=== PATIENT | female | born 2000 | race Caucasian/White ===

== ENCOUNTER 2019-03-18 08:37 | Emergency (ER) | payer OTHER ==
--- NOTE | 2019-03-18 08:47 | ED ---
Influenza-Like Illness - HPI Summary HPI Summary: Pt. is a 18 y.o female who presents to the ER for sore throat, fever, and body aches that started yesterday. Pt. is student at . Pt. denies sick contacts. Pt. notes hx of tonisillitis. Pt. denies cough, abd. pain, V/D, urinary sxs. Sxs are mild in severity. No current modifying factors. - History of Current Complaint Chief Complaint: EDFluSymptoms Time Seen by Provider: 03/18/19 08:46 Hx Obtained From: Patient - Allergy/Home Medications Allergies/Adverse Reactions: Allergies Allergy/AdvReac Type Severity Reaction Status Date / Time No Known Allergies Allergy Verified 03/18/19 08:42 Home Medications: Home Medications Norgestimate-Eth Estradiol(NF) [Ortho Tri-Cyclen (NF)] 1 tab PO DAILY 03/18/19 [ History Confirmed 03/18/19] PMH/Surg Hx/FS Hx/Imm Hx Previously Healthy: Yes Infectious Disease History: No Infectious Disease History: Denies: Traveled Outside the [place] in Last 30 Days - Family History Known Family History: Positive: Non-Contributory - Social History Occupation: Student Lives: Dormitory/Roommates Review of Systems Positive: Fever, Chills Eyes: Negative Positive: Sore Throat Cardiovascular: Negative Respiratory: Negative Negative: Cough Gastrointestinal: Negative Negative: Abdominal Pain, Vomiting, Diarrhea Genitourinary: Negative Negative: dysuria Positive: Myalgia Skin: Negative Negative: Rash Neurological: Negative All Other Systems Reviewed And Are Negative: Yes Physical Exam Triage Information Reviewed: Yes Vital Signs On Initial Exam: Initial Vitals Temp Pulse Resp BP Pulse Ox 99 F 132 16 123/95 100 03/18/19 08:38 03/18/19 08:38 03/18/19 08:38 03/18/19 08:38 03/18/19 08:38 Vital Signs Reviewed: Yes Appearance: Positive: Well-Appearing - Pt. sitting up in bed in NAD. Skin: Positive: Warm, Dry Head/Face: Positive: Normal Head/Face Inspection Eyes: Positive: Normal, EOMI, MARJAN, Conjunctiva Clear ENT: Positive: TMs normal, Other - Oral pharynx injected with mild bilateral tonsilar edema. No exudates. Uvula midline without deviation. No trismus or muffled voice. Neck: Positive: Enlarged Nodes @ - cervical anterior bilateral. Respiratory/Lung Sounds: Positive: Clear to Auscultation, Breath Sounds Present. Negative: Rales, Rhonchi, Wheezes Cardiovascular: Positive: Normal, Tachycardia Abdomen Description: Positive: Nontender, Soft Neurological: Positive: Normal, CN Intact II-III Psychiatric: Positive: Affect/Mood Appropriate Procedures - Sedation Patient Received Moderate/Deep Sedation with Procedure: No Diagnostics - Vital Signs Vital Signs Temp Pulse Resp BP Pulse Ox 03/18/19 08:38 99 F 132 16 123/95 100 - Laboratory Lab Statement: Any lab studies that have been ordered have been reviewed, and results considered in the medical decision making process. Flu Symptom Course/Dx - Course Course Of Treatment: Pr. pesenting with above sxs. HR initially elevated but improved with PO fluids and motrin. Negative strep and flu. Suspect viral etiology. To f.u with [facility] clinic in 2-3 days if sxs persist. To increase fluids and rest. tylenol or motrin as directed. To return to er if sxs change or worsen. Pt. understands and agrees with plan. - Diagnoses Differential Diagnosis/HQI/PQRI: Positive: Influenza, Pneumonia, Upper Respiratory Infection Provider Diagnoses: Viral syndrome Discharge ED - Sign-Out/Discharge Documenting (check all that apply): Patient Departure - Discharge Plan Condition: Improved Disposition: HOME Patient Education Materials: Viral Syndrome (ED) Referrals: [facility] @ [Outside] Additional Instructions: Schedule a follow up appointment with [facility] clinic in 2-3 days Increase fluids and rest Tylenol or motrin for pain and fever as directed Return to ER if symptoms change or worsen - Billing Disposition and Condition Condition: IMPROVED Disposition: Home
[2019-03-18] MEDS ORDERED: Ibuprofen TAB* 600 MG PO ONE (08:56)
[2019-03-18 09:28] LABS: Rapid Strep Molecular Negative (Negative)
[2019-03-18 09:38] LABS: Influenza A Molecular NEGATIVE (Negative); Influenza B Molecular NEGATIVE (Negative)
[2019-03-18 10:00] VITALS: BP 114/64
== END 2019-03-18 10:06 | disposition home or self-care (01) ==
LOC: ED 08:37
DX: B34.9 Viral infection, unspecified (principal); J02.9 Acute pharyngitis, unspecified; Z79.899 Other long term (current) drug therapy
CPT/HCPCS: 87651; 99282; A9270-GY